=== PATIENT | female | born 1965 | race African-American/Black ===

== ENCOUNTER 2020-04-05 18:20 | Emergency (ER) | payer OTHER, MEDICAID ==
[~2020-04-05] VITALS: Ht 167.6 cm; Wt 77.0 kg
[2020-04-05] MEDS ORDERED: KETOROLAC 30MG/ML VIAL IV STA (19:08)
[2020-04-05] MEDS ORDERED: SODIUM CHLORIDE 0.9% 1,000 ML IV ONE (19:08)
[2020-04-05 19:59] LABS: BASOPHILS % 0.9 % (0.0-2.0); EOSINOPHILS % 0.8 % (0.0-5.0); HEMATOCRIT. 37.9 % (36.0-48.0); HEMOGLOBIN. 11.9 g/dL (12.0-16.0); LYMPHOCYTES % 35.7 % (20.0-50.0); MEAN CORPUSCULAR HEMOGLOBIN 25.9 pg (28.0-32.0); MEAN CORPUSCULAR VOLUME 82.3 fL (81.0-99.0); MEAN PLATELET VOLUME 9.4 fl (7.4-10.4); MONOCYTES % 7.4 % (2.0-8.0); NEUTROPHILS % 55.2 % (40.0-76.0); PLATELET 235 x1000/uL (130-400); RED BLOOD CELL COUNT 4.61 mill/uL (4.2-5.4); RED CELL DISTRIBUTION WIDTH 15.3 % (11.6-14.6)
[2020-04-05 20:08] LABS: CHLORIDE 103 mEq/L (98-107)
[2020-04-05 20:09] LABS: D-DIMER 0.19 mg/L FEU (<0.50); PROTHROMBIN TIME 10.4 sec (9.6-11.0)
[2020-04-05] MEDS ORDERED: IOHEXOL-350 100 ML BOTTLE ONE (21:56)
[2020-04-05 23:18] VITALS: BP 148/76
== END 2020-04-05 23:44 | disposition home or self-care (01) ==
LOC: ER 18:20
DX: M54.9 Dorsalgia, unspecified (principal); E87.2 Acidosis; E11.9 Type 2 diabetes mellitus without complications; E78.00 Pure hypercholesterolemia, unspecified
CPT/HCPCS: 36415; 71045; 71275; 74174; 80053; 83605; 83690; 84484; 85025; 85379; 85610; 93005; 96374; 99285; J1885; J7030; Q9967